=== PATIENT | male | born 1985 | race African-American/Black ===

== ENCOUNTER 2017-06-18 20:57 | Emergency (ER) | payer OTHER ==
[~2017-06-18] VITALS: Ht 172.7 cm; Wt 104.3 kg
[2017-06-18 21:01] VITALS: BP 130/83
[2017-06-18] MEDS ORDERED: NKM (21:07)
[2017-06-18] MEDS ORDERED: Norco 5mg/325mg tab ORAL ONE (21:15)
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
[2017-06-18] MEDS ORDERED: HYDROCODON-ACE1 EA15 ORAL (21:41)
[2017-06-18 21:47] VITALS: BP 130/83
--- NOTE | 2017-06-19 09:09 | Diagnostic Imaging Report ---
Indication: TRAUMA Comparison: None Findings: Multiple views of the right ribs show no evidence of acute fractures. Bony mineralization is normal. No bony destructive lesions are identified. Visualized portions of the right lung is clear. Soft tissues are unremarkable. There is no evidence of pneumothorax. Impression: Normal right rib series
== END 2017-06-18 21:45 | disposition home or self-care (01) ==
LOC: EMR 21:18
DX: S20.211A Contusion of right front wall of thorax, initial encounter (principal); Y08.89XA Assault by other specified means, initial encounter; Y92.89 Other specified places as the place of occurrence of the external cause
CPT/HCPCS: 99283